=== PATIENT | male | born 1995 | race Caucasian/White ===

== ENCOUNTER 2018-01-01 12:44 | Emergency (ER) | payer OTHER, SELFPAY ==
[2018-01-01 12:51] VITALS: BP 117/71; PULSE 61; RESP 16; TEMP 36.7; O2SAT 100
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
[2018-01-01 15:14] VITALS: BP 120/72; PULSE 50; RESP 16; O2SAT 100
== END 2018-01-01 15:18 | disposition home or self-care (01) ==
PROVIDERS: Emergency Provider Internal Medicine
DX: S60.229A Contusion of unspecified hand, initial encounter (principal); V89.2XXA Person injured in unspecified motor-vehicle accident, traffic, initial encounter
CPT/HCPCS: 73140; 99283

== ENCOUNTER → 2019-03-03 09:43 | Outpatient (CLI) | payer OTHER, SELFPAY ==
--- NOTE | 2019-03-03 | DI.US.S_ITS ---
PROCEDURE: US FINE NEEDLE ASPIRATION INDICATIONS: RIGHT SUBMANDIBULAR LYMPH NODE TECHNIQUE: The indications, alternatives, benefits, risks, and complications of the procedure were explained to the patient. Written informed consent was obtained and placed in the chart. Real-time sonography was utilized to choose the site for percutaneous lymph node sampling. The skin was prepped and draped in the usual sterile fashion. 1% lidocaine was infiltrated down to the site of interest. Serial hypodermic needles were then advanced into the site of interest under direct sonographic visualization, and serial needle aspirates were obtained. The needles were then withdrawn; a bandage was applied to the procedure site. COMPARISON: CT neck 01/14/2019 and neck ultrasound 11/06/2018. FINDINGS: Sample site(s): Right neck level II superficial to the carotid bifurcation. Prominent lymph node measuring 4.2 x 1.2 x 1.8 cm, (previously 2.7 x 1 x 2.3 cm on ultrasound 11/02/2018). Needle: 25 gauge. Number of passes: 7. Medications: 1% lidocaine for local anaesthesia. Complications: None. IMPRESSION: Successful ultrasound-guided right neck level II lymph node fine needle aspiration, with cytology results pending. RPMI samples was also obtained. Dictated by: Cody Larson M.D. on 03/03/2019 at 11:18 Approved by: Cody Larson M.D. on 03/03/2019 at 11:24
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
== END ==
PROVIDERS: Visit Provider Otolaryngology
DX: R59.1 Generalized enlarged lymph nodes (principal)
CPT/HCPCS: 10005